=== PATIENT | male | born 1960 | race Caucasian/White ===

== ENCOUNTER 2019-04-19 07:29 | Day surgery (SDC) | payer BC ==
[2019-04-19 07:55] VITALS: BMI 30.4
[2019-04-19 08:51] VITALS: TEMP 98.5
[2019-04-19 09:47] VITALS: BP 135/96; PULSE 58
--- NOTE | 2019-04-23 18:19 | PATH ---
Surgical Pathology Report Patient Name: RENATE HUGHES [facility] [place]. Rec. #: [id number] /Age/Gender: 1960 (Age: 58) / M Account: [id number] Location: [facility]-ENDOSCOPY Taken: 04/19/2019 Received: 04/19/2019 Reported: 04/23/2019 Physicians: Yael Morel M.D. Specimen(s) Received A: BX DUODEUM 2ND PORTION B: BX ANTRUM C: BX GE JUNCTION Clinical History Dyspepsia, rectal bleeding, polyp surveillance Postoperative diagnosis: Atrophic gastritis, hiatal hernia, diverticulosis Final Diagnosis A. DUODENUM SECOND PORTION, BIOPSY: DUODENUM MUCOSA WITH FOCAL NONSPECIFIC CHRONIC DUODENITIS. NO HISTOLOGIC EVIDENCE OF CELIAC DISEASE. B. ANTRUM, BIOPSY: GASTRIC MUCOSA WITH CHRONIC GASTRITIS. IMMUNOSTAIN FOR H. PYLORI IS NEGATIVE. NEGATIVE FOR INTESTINAL METAPLASIA. C. GE JUNCTION, BIOPSY: GASTROESOPHAGEAL JUNCTION MUCOSA WITH REFLUX ESOPHAGITIS. NEGATIVE FOR INTESTINAL METAPLASIA. Electronically Signed Karly Gaytan M.D. Gross Description A. Received in formalin, labeled "duodenum second portion" are 3 zhu, irregular portions of soft tissue measuring 0.2 and 0.3 cm. in greatest dimension. The specimens are submitted in toto in one cassette. B. Received in formalin, labeled "antrum" are 4 zhu, irregular portions of soft tissue measuring 0.2 and 0.3 cm. in greatest dimension. The specimens are submitted in toto in one cassette. C. Received in formalin, labeled "GE junction" are 2 zhu, irregular portions of soft tissue measuring 0.3 and 0.4 cm. in greatest dimension. The specimens are submitted in toto in one cassette. MLSZ/04/20/2019 sanml/04/20/2019
== END 2019-04-19 09:44 | disposition home or self-care (01) ==
LOC: JASU-ENDO 07:29
PROVIDERS: ATTEND Internal Medicine Gastroenterology
PROC: 0DB98ZX Excision of Duodenum, Via Natural or Artificial Opening Endoscopic, Diagnostic (ICD-10-PCS; 2019-04-19)
PROC: 0DB68ZX Excision of Stomach, Via Natural or Artificial Opening Endoscopic, Diagnostic (ICD-10-PCS; 2019-04-19)
PROC: 0DB58ZX Excision of Esophagus, Via Natural or Artificial Opening Endoscopic, Diagnostic (ICD-10-PCS; 2019-04-19)
PROC: 0DJD8ZZ Inspection of Lower Intestinal Tract, Via Natural or Artificial Opening Endoscopic (ICD-10-PCS; principal; 2019-04-19 08:45)
DX: Z86.010 Personal history of colon polyps (principal); K57.30 Diverticulosis of large intestine without perforation or abscess without bleeding; K64.8 Other hemorrhoids; K29.80 Duodenitis without bleeding; K29.50 Unspecified chronic gastritis without bleeding; K21.0 Gastro-esophageal reflux disease with esophagitis; K44.9 Diaphragmatic hernia without obstruction or gangrene; K21.9 Gastro-esophageal reflux disease without esophagitis; E11.9 Type 2 diabetes mellitus without complications; E78.5 Hyperlipidemia, unspecified
CPT/HCPCS: 88305-TC; 88342-TC

== ENCOUNTER 2020-04-29 09:40 | Emergency (ER) | payer BC ==
[2020-04-29 09:46] VITALS: BP 142/83; PULSE 68; TEMP 98.5; BMI 30.7
[2020-04-29] MEDS ORDERED: morphine CARPU-JECT 4 MG/1 ML DISP.SYRIN IM ONE (09:55)
[2020-04-29] MEDS ORDERED: morphine SULFATE 4 MG/ML VIAL ONE (10:12)
--- NOTE | 2020-04-29 10:25 | PDOC ---
Documentation entered by Jess Ascencio SCRIBE, acting as scribe for Oz Briceño MD. Oz Briceño MD: This documentation has been prepared by the uteibeSonu Ana, SCRIBE, under my direction and personally reviewed by me in its entirety. I confirm that the documentation accurately reflects all work, treatment, procedures, and medical decision making performed by me. History of Present Illness - General Stated Complaint: FALL (HEAD INJURY) Time Seen by Provider: 04/29/20 09:47 History Source: Patient, Family Exam Limitations: Language Barrier - History of Present Illness Initial Comments: 04/29/20 09:47 Patient is a 59 year old male with a significant past medical history of diabetes, former back injury s/p spinal surgeries, who presents to the ED after fall that occurred earlier today. Patient stated he was working on a 6ft ladder when he fell off. Pt hit his head against the wall and landed on his back. Patient said he was able to get up on his own after the fall. Patient denies feeling dizzy prior to the fall. Patient endorses: head pain and lower back pain. Patient denies: any numbness/tingling, dizziness, neck pain, shoulder pain, chest pain, abdominal pain, any injuries to upper and lower extremities, lower extremity edema, or any other related symptoms. Allergies: NKDA Patient's son at bedside assisted with translation. Past History - Medical History Allergies/Adverse Reactions: Allergies Allergy/AdvReac Type Severity Reaction Status Date / Time No Known Allergies Allergy Verified 04/29/20 09:42 Home Medications: Ambulatory Orders Sitagliptin Phos/Metformin HCl [Janumet 50-1,000 mg Tablet] 1 each PO DAILY 04/18/19 Anemia: No Asthma: No Cancer: No Cardiac Disorders: No Diabetes: Yes (NIDDM) GI Disorders: Yes (GERD, COLON POLYPS, DIVERTICULOSIS, H.PYLORI) HTN: Yes Hypercholesterolemia: Yes Liver Disease: Yes (NAFLD S DANIELS) - Surgical History Orthopedic Surgery: Yes (LAMINECTOMY, RT KNEE ARTHROSCOPY) - Psycho-Social/Smoking History Smoking Status: No Smoking History: Never smoked Have you smoked in the past 12 months: No Number of Cigarettes Smoked Daily: 0 If you are a former smoker, when did you quit?: 1975 Information on smoking cessation initiated: No - Substance Abuse Hx (Audit-C & DAST Scrn) How often the patient has a drink containing alcohol: Never Score: In Men: 4 or > Positive; In Women: 3 or > Positive: 0 Screen Result (Pos requires Nsg. Audit-10AR): Negative In the last yr the pt used illegal drug/Rx for NonMed reason: No Score: Yes response is considered Positive: 0 Screen Result (Positive result requires Nsg. DAST-10): Negative Review of Systems - Review of Systems Able to Perform ROS?: Yes Comments:: 04/29/20 10:02 GENERAL/CONSTITUTIONAL: No fever or chills. HEAD, EYES, EARS, NOSE AND THROAT: No change in vision. No ear pain or discharge. No sore throat. CARDIOVASCULAR: No chest pain, no shortness of breath. RESPIRATORY: No cough, wheezing, or hemoptysis. GASTROINTESTINAL: No nausea, vomiting, diarrhea or constipation. GENITOURINARY: No dysuria, frequency, or change in urination. MUSCULOSKELETAL: +lower back pain. SKIN: No rash NEUROLOGIC: No vertigo, no change in strength/sensation. ENDOCRINE: No increased thirst. No abnormal weight change. HEMATOLOGIC/LYMPHATIC: No anemia, easy bleeding, or history of blood clots. ALLERGIC/IMMUNOLOGIC: No hives or skin allergy." *Physical Exam - Vital Signs Last Vital Signs Temp Pulse Resp BP Pulse Ox 98.5 F 68 16 142/83 99 04/29/20 09:42 04/29/20 09:42 04/29/20 09:42 04/29/20 09:42 04/29/20 09:42 - Physical Exam 04/29/20 10:03 GENERAL: Awake, alert, and fully oriented, in no acute distress. HEAD: + stellate laceration to R occiput EYES: PERRLA, EOMI, sclera anicteric, conjunctiva clear ENT: Auricles normal inspection, hearing grossly normal, nares patent, oropharynx clear without exudates. Moist mucosa NECK: Nontender, no stepoffs, Normal ROM, supple, no lymphadenopathy, JVD, or masses LUNGS: Breath sounds equal, clear to auscultation bilaterally. No wheezes, and no crackles HEART: Regular rate and rhythm, normal S1 and S2, no murmurs, rubs or gallops ABDOMEN: Soft, nontender, normoactive bowel sounds. No guarding, no rebound. No masses EXTREMITIES: Normal range of motion, no edema. No clubbing or cyanosis. No cords, erythema, or tenderness NEUROLOGICAL: Cranial nerves II through XII intact. 5/5 strength and sensation in all extremities, Normal speech, normal gait, normal cerebellar function SKIN: Warm, Dry, normal turgor, no rashes or lesions noted. BACK: no stepoffs, no midline tenderness Procedures - Laceration/Wound Repair Posterior Head Wound Length: 2.6 to 5.0 cm Wound Explored: clean Wound's Depth, Shape: stellate Irrigated w/ Saline: Yes Anesthesia: 1% Lidocaine Amount of Anesthetic (ccs): 5 Wound Repaired With: Yg Number of Sutures: 8 Medical Decision Making - Medical Decision Making 04/29/20 10:28 59 M with fall off ladder, now with head lac and lower back pain. - CT head/C-T-L-spine - Pain control - Lac repair 04/29/20 11:31 CT head unremarkable Acute L1 compression fx found. Pt with no neuro deficits to suggest cord injury. 04/29/20 11:50 Lac repaired with 8 yg Pt is well appearing, with normal vitals. Clinically stable for DC at this time. I discussed the physical exam findings, ancillary test results and final diagnoses with the patient. I answered all of the patient's questions. The patient was satisfied with the care received and felt comfortable with the discharge plan and treatment plan. The patient agrees to follow up with the primary care physician within 24-72 hours. Discharge - Discharge Information Problems reviewed: Yes Clinical Impression/Diagnosis: Fall, Scalp laceration, Compression fracture - Follow up/Referral Referrals: Aroldo Suarez MD, FA[facility] [Staff Physician] - - Patient Discharge Instructions Patient Printed Discharge Instructions: DI for Laceration Repair -- Yg, DI for Vertebral Fracture Additional Instructions: You have a mild compression fracture of your L1 vertebra. Follow up with a field talent qualification specialist for further management. Call the number provided to make an appointment with Dr. Suarez. If you experience worsening pain, weakness or numbness in your legs, difficulty controlling your bowel or bladder, difficulty walking, or any other concerning symptoms, return to the ER immediately. You have 8 yg in your scalp. Please return to the ER in 7-10 days to have them removed. If you notice any swelling, redness, abnormal drainage, or any other signs of infection, return to the ER immediately. - Post Discharge Activity
== END 2020-04-29 12:33 | disposition home or self-care (01) ==
LOC: JER 09:40
PROC: 3E023NZ Introduction of Analgesics, Hypnotics, Sedatives into Muscle, Percutaneous Approach (ICD-10-PCS; principal; 2020-04-29)
DX: S01.81XA Laceration without foreign body of other part of head, initial encounter (principal); S22.000A Wedge compression fracture of unspecified thoracic vertebra, initial encounter for closed fracture
CPT/HCPCS: 70450-TC; 72125-TC; 72128-TC; 72131-TC; 99285-25

== ENCOUNTER 2023-09-05 13:40 | Emergency (ER) | payer OTHER ==
[2023-09-05 13:59] VITALS: BP 138/67; PULSE 75; RESP 17; TEMP 98; BMI 30.7
== END 2023-09-05 15:49 | disposition left against medical advice (07) ==
LOC: JER 13:40
DX: S61.309A Unspecified open wound of unspecified finger with damage to nail, initial encounter (principal); W31.2XXA Contact with powered woodworking and forming machines, initial encounter
CPT/HCPCS: 73130-TC-RT-FY; 99283-25